=== PATIENT | male | born 1980 | race Caucasian/White ===

== ENCOUNTER 2023-10-28 10:27 | Emergency (ER) | payer SELFPAY ==
[~2023-10-28] VITALS: Ht 165.1 cm; Wt 82.0 kg
[2023-10-28 10:37] VITALS: BP 138/86; PULSE 90; RESP 16; TEMP 98.5; O2SAT 99
== END 2023-10-28 12:08 | disposition left against medical advice (07) ==
LOC: ER 10:40
DX: M79.673 Pain in unspecified foot (principal); Z53.21 Procedure and treatment not carried out due to patient leaving prior to being seen by health care provider
CPT/HCPCS: 99281